=== PATIENT | male | born 1975 | race Caucasian/White ===

== ENCOUNTER → 2024-05-27 | Outpatient (CLI) | payer BC ==
--- NOTE | 2024-05-27 14:56 | US ---
EXAMINATION TYPE: US scrotum with doppler. DATE OF EXAM: 05/27/2024 COMPARISON: NONE CLINICAL INDICATION: Male, 49 years old with history of N50.819 TESTICLE K40.90 GROIN; right groin p ain while at the gym, no bulging, right testicle can also have some pain TECHNIQUE: Grayscale, color Doppler and spectral Doppler imaging of the scrotum. FINDINGS: EXAM MEASUREMENTS: TESTICLES: Right Testicle: 5.1 x 3.6 x 2.8 cm Left Testicle: 5.6 x 4.1 x 2.5 cm EPIDIDYMIS HEAD: Right Epididymis: 1.5 cm Left Epididymis: 1.4 cm Doppler performed to assess for testicular vascularity; good bilateral color flow and waveforms are s een. There is no evidence of testicular torsion. Presence of hydroceles: bilateral Presence of varicoceles: no Right inguinal canal appears wnl, no hernis seen IMPRESSION: 1. Bilateral hydroceles. [facility], , 05/27/2024 1:43 PM
== END | disposition home or self-care (01) ==
LOC: RADUSWWP 10:39
PROVIDERS: ATTEND Family Medicine
CPT/HCPCS: 76870; 93975